=== PATIENT | male | born 1970 | race Caucasian/White ===

== ENCOUNTER 2019-09-09 11:16 | Emergency (ER) | payer OTHER ==
[~2019-09-09] VITALS: Ht 170.2 cm; Wt 100.0 kg
[2019-09-09 11:40] VITALS: TEMP 97.6
[2019-09-09 14:04] VITALS: BP 129/87; PULSE 76
== END 2019-09-09 14:04 | disposition home or self-care (01) ==
LOC: COL.ER 11:16
DX: G89.18 Other acute postprocedural pain (principal); M79.662 Pain in left lower leg; F41.9 Anxiety disorder, unspecified; F17.210 Nicotine dependence, cigarettes, uncomplicated; Z98.1 Arthrodesis status

== ENCOUNTER 2019-10-07 07:02 | Emergency (ER) | payer MEDICARE ==
[~2019-10-07] VITALS: Ht 167.6 cm; Wt 90.9 kg
[2019-10-07 07:08] VITALS: TEMP 97.9
[2019-10-07] MEDS ORDERED: LASIX 40MG TABL40 MG PO (07:15)
[2019-10-07] MEDS ORDERED: PRIL40 PO (07:19)
[2019-10-07] MEDS ORDERED: HYZAAR 25 MG-101 TAB PO (07:19)
[2019-10-07] MEDS ORDERED: ZANAFLEX CAPSULE4 MG PO (07:20)
[2019-10-07] MEDS ORDERED: PERCOCET 325 MG1 TA3 PO (07:20)
[2019-10-07] MEDS ORDERED: K-DUR 10 MEQ T10 MEQ PO (07:21)
[2019-10-07] MEDS ORDERED: MULTI VITAMINS1 TAB PO (07:22)
[2019-10-07 07:49] LABS: BASO # 0.1 (0.0-0.2); BASO % 1.4 % (0.0-2.0); EOS # 0.3 (0.0-0.7); EOS % 3.6 % (0-4.0); GRAN # 4.4 (1.4-6.5); GRAN % 58.3 % (42.2-75.2); HEMATOCRIT 38.6 % (42.0-52.0); HEMOGLOBIN 12.8 g/dl (13.5-18.0); LYMPH # 1.5 (1.2-3.4); LYMPH % 19.6 % (20.0-51.0); MEAN CELL VOLUME 91 fl (80.0-100.0); MEAN CORPUSCULAR HEMOGLOBIN 30 pg (27.0-31.0); MEAN CORPUSCULAR HGB CONC 33 g/dl (33.0-37.0); MONO # 1.3 (0.1-0.6); MONO % 16.4 % (1.7-9.3); PLATELET COUNT 225 K/mm3 (130-400); RED BLOOD COUNT 4.25 M/mm3 (4.20-5.60); REDCELL DISTRIBUTION WIDTH-CV 12.8 % (11.5-14.5)
[2019-10-07 07:53] LABS: INR 1.1 (0.8-3.0); PROTHROMBIN TIME 12.8 SECONDS (9.7-12.8)
[2019-10-07 08:04] LABS: ALANINE AMINOTRANSFERASE 234 U/L (4-49); ALBUMIN 4.9 gm/dL (3.5-5.0); ALKALINE PHOSPHATASE 65 U/L (50-136); ANION GAP 17 mmol/L (7-16); AST,SGOT 222 U/L (15-37); BILIRUBIN,TOTAL 0.9 mg/dL (0.0-1.0); BLOOD UREA NITROGEN 13 mg/dL (9-20); C-REACTIVE PROTEIN 1.6 mg/dL (0.0-0.9); CALCIUM 9.5 mg/dL (8.4-10.2); CARBON DIOXIDE 23 mmol/L (22-30); CHLORIDE 91 mmol/L (98-107); CREATININE, serum 1.06 (0.66-1.25); GLUCOSE 118 mg/dL (74-106); LIPASE 238 U/L (23-300); POTASSIUM 3.9 mmol/L (3.4-5.0); SODIUM 130 mmol/L (137-145); TOTAL PROTEIN 8.3 gm/dL (6.4-8.2)
[2019-10-07 08:14] LABS: TROPONIN-I < 0.012 ng/mL (0.000-0.035)
[2019-10-07 09:01] LABS: COLLECTION METHOD CLEAN CATCH
[2019-10-07 09:07] LABS: PH 6 (5-8); SQUAMOUS EPITHELIAL None Seen /hpf; URINE APPEARANCE Clear; URINE BACTERIA None Seen /hpf; URINE BILIRUBIN Negative (NEGATIVE); URINE BLOOD Negative (NEGATIVE); URINE COLOR Yellow; URINE GLUCOSE Negative (NEGATIVE); URINE KETONE Negative (NEGATIVE); URINE LEUKOCYTE ESTERASE Negative (NEGATIVE); URINE NITRATE Negative (NEGATIVE); URINE PROTEIN(semi-quant) Negative (NEGATIVE); URINE RBC 0-2 /hpf; URINE UROBILINOGEN Negative (NEGATIVE)
[2019-10-07 09:31] VITALS: BP 143/109; PULSE 93
== END 2019-10-07 09:39 | disposition home or self-care (01) ==
LOC: COL.ER 07:02
PROVIDERS: Emergency Medicine
DX: R09.89 Other specified symptoms and signs involving the circulatory and respiratory systems (principal); I10 Essential (primary) hypertension
CPT/HCPCS: J7030